=== PATIENT | male | born 1940 | race Asian ===

== ENCOUNTER 2024-08-07 08:27 | Emergency (ER) | payer MEDICARE, OTHER ==
[~2024-08-07] VITALS: Ht 167.6 cm; Wt 59.4 kg
[2024-08-07 09:01] VITALS: BP 137/67; PULSE 96; RESP 22; TEMP 98.2; O2SAT 99
[2024-08-07 09:15] LABS: ABG CARBOXYHEMOGLOBIN 2.5 % (0.5-1.5); ABG HCO3 26.9 mmol/L (21.0-28.0); ABG METHEMOGLOBIN 1.1 % (0.0-1.5); ABG OXYGEN CONTENT 11.7 mL/dL (15.0-23.0); ABG OXYGEN SATURATION 99.8 % (94.0-98.0); ABG OXYHEMOGLOBIN 96.2 % (94.0-98.0); ABG PCO2 42 mmHg (32.0-48.0); ABG PH 7.431 (7.350-7.450); ABG TOTAL HEMOGLOBIN 8.1 G/dL (13.5-17.5); ALLEN TEST, BLOOD GAS Positive; O2 DEVICE,BLOOD GAS NON REBREATHER (ROOM AIR); PO2, ARTERIAL BG 271.4 mmHg (83.0-108.0); SITE, BLOOD GAS RT RADIAL; SOURCE, BLOOD GAS ARTERIAL; TEMPERATURE, FAHRENHEIT, BG 98.2 FAHREN (96.0-98.6)
[2024-08-07 09:36] LABS: BASOPHILS % (AUTO) 0.4 % (0.0-2.0); EOSINOPHILS % (AUTO) 2.2 % (1.0-6.0); HEMATOCRIT 24.3 % (41-53); HEMOGLOBIN 7.7 g/dL (13.5-17.5); LYMPHOCYTES # (AUTO) 0.3 K/uL (1.0-4.8); LYMPHOCYTES % (AUTO) 3.5 % (22.0-44.0); MEAN CORPUSCULAR HEMOGLOBIN 27.1 pg (26.0-34.0); MEAN CORPUSCULAR HGB CONC 31.8 G/dL (31.0-37.0); MEAN CORPUSCULAR VOLUME 85 fL (80-100); MONOCYTES # (AUTO) 0.6 K/uL (0.1-1.0); MONOCYTES % (AUTO) 7.7 % (2.0-9.0); NEUTROPHILS # (AUTO) 7.1 K/uL (1.8-7.7); PLATELET COUNT (AUTO) 231 K/uL (150-450); RED BLOOD CELL COUNT(AUTO) 2.85 MIL/uL (4.50-5.90); RED CELL DISTRIBUTION WIDTH 16.3 % (11.5-14.5); WHITE BLOOD COUNT (AUTO) 8.2 K/uL (4.5-11.0)
[2024-08-07 09:39] LABS: NEUTROPHILS % (AUTO) 86.2 % (40.0-70.0)
[2024-08-07 09:56] LABS: CREATININE 1.34 mg/dL (0.60-1.30); POTASSIUM 4.4 mmol/L (3.5-5.1)
[2024-08-07 10:04] LABS: TROPONIN I-HIGH SENSITIVITY 10 ng/L (<76)
[2024-08-07 10:10] LABS: COVID AG,FIA SOURCE NASAL SWAB
[2024-08-07 10:31] LABS: INFLUENZA TYPE A NEGATIVE FOR TYPE A (NEGATIVE); SARS-COV2 (COVID) ANTIGEN,FIA Negative (Negative)
[2024-08-07 10:32] LABS: INFLUENZA TYPE B NEGATIVE FOR TYPE B (NEGATIVE)
[2024-08-07] MEDS ORDERED: PRED-554 PO (10:51)
[2024-08-07] MEDS: PredniSONE 20 MG TABLET PO ONE (11:52)
== END 2024-08-07 13:05 | disposition home or self-care (01) ==
LOC: EMS 08:37
DX: J84.9 Interstitial pulmonary disease, unspecified (principal); R19.7 Diarrhea, unspecified; D64.9 Anemia, unspecified; R09.02 Hypoxemia; N18.9 Chronic kidney disease, unspecified; Z79.01 Long term (current) use of anticoagulants; Z87.11 Personal history of peptic ulcer disease; Z20.822 Contact with and (suspected) exposure to COVID-19
CPT/HCPCS: 99285; 71045; 87426; 80048; 83880; 84484; 85025; 85379; 87040; 87804; 36415; 82805; 36600; 93005; J7512